=== PATIENT | male | born 1955 | race Two or more races ===

== ENCOUNTER → 2017-09-30 19:02 | Emergency (ER) | payer OTHER, BC ==
[2017-09-30] MEDS: ALBUTEROL 0.5% (NEB) 2.5 MG/0.5 ML AMP INH (15:31)
[2017-09-30] MEDS: IPRATROPIUM (NEB) 0.5 MG/2.5 ML AMP INH (15:31)
[2017-09-30 15:51] LABS: ADD MAN DIFF? NO
[2017-09-30] MEDS: IBUPROFEN 600 MG TAB PO (15:52)
[2017-09-30] MEDS: METHYLPREDNISOLONE 125 MG INJ IV (15:52)
[2017-09-30] MEDS: KETOROLAC 15 MG INJ IV (15:52)
[2017-09-30 15:53] LABS: ABNORMAL IP MESSAGE 1; BASOPHIL # 0.1 10^3/ul (0.0-0.1); BASOPHILS % 0.4 % (0.0-2.0); EOSINOPHILS % 0.2 % (0.0-7.0); HEMATOCRIT 42.8 % (42.0-52.0); HEMOGLOBIN 14.1 g/dl (14.0-18.0); LYMPHOCYTES % 15.9 % (15.0-51.0); MEAN CORPUSCULAR HEMOGLOBIN 27.7 pg (29.0-33.0); MEAN CORPUSCULAR HGB CONC 32.9 g/dl (32.0-37.0); MEAN CORPUSCULAR VOLUME 84.1 fl (82.0-101.0); MEAN PLATELET VOLUME 10.5 fl (7.4-10.4); MONOCYTE # 1.6 10^3/ul (0.3-0.9); MONOCYTES % 12.6 % (0.0-11.0); NEUTROPHIL # 8.9 10^3/ul (1.6-7.5); NEUTROPHILS % 70.5 % (39.0-77.0); PLATELET COUNT 199 10^3/UL (140-415); POSITIVE DIFF @See below; RED BLOOD COUNT 5.09 10^6/ul (4.70-6.10); RED CELL DISTRIBUTION WIDTH 15.3 % (11.5-14.5)
[2017-09-30 15:53] LABS: WHITE BLOOD COUNT 12.7 10^3/ul (4.8-10.8)
[2017-09-30] MEDS: SOD CHLORIDE 0.9% 1,000 ML IV (15:53)
[2017-09-30 16:29] LABS: ALANINE AMINOTRANSFERASE 29 IU/L (13-69); ALBUMIN 4.2 g/dl (3.3-4.9); ALBUMIN/GLOBULIN RATIO 1.27; ALKALINE PHOSPHATASE 49 IU/L (42-121); ANION GAP 12 (8-16); ASPARTATE AMINO TRANSFERASE 24 IU/L (15-46); BILIRUBIN,INDIRECT 0.5 mg/dl (0-1.1); BILIRUBIN,TOTAL 0.5 mg/dl (0.2-1.3); BLOOD UREA NITROGEN 16 mg/dl (7-20); CALCIUM 9.1 mg/dl (8.4-10.2); CARBON DIOXIDE 27 mmol/L (21-31); CHLORIDE 103 mmol/L (97-110); CREATININE 0.83 mg/dl (0.61-1.24); GLUCOSE 127 mg/dl (70-220); LIPASE 114 U/L (23-300); POTASSIUM 4.1 mmol/L (3.5-5.1); SODIUM 138 mmol/L (135-144); TOTAL PROTEIN 7.5 g/dl (6.1-8.1)
[2017-09-30 16:40] LABS: TROPONIN-I < 0.010 ng/ml (0.000-0.120)
[~2017-09-30 19:02] MED LIST: ACETAMINOPHEN 325 MG TAB PO; ALBUTEROL/IPRATROPIUM (NEB) 3 ML AMP HHN; ASPIRIN (EC) 325 MG TAB PO; DOCUSATE SODIUM 100 MG CAP PO; HEPARIN 5,000 UNIT/0.5 ML VIAL SC; HYDROCODONE/APAP (5/325) TAB PO; LORAZEPAM 2 MG INJ IV; MAGNESIUM HYDROXIDE 30ML CUP PO; NA PHOSPHATE/BIPHOS 133 ML ENEMA PR; NACL 0.9% 3 ML SYG IV; NITROGLYCERIN (SL) 0.4 MG TAB SL; ONDANSETRON 4 MG INJ IV; PANTOPRAZOLE 40 MG INJ IV; SOD CHLORIDE 0.45% 1,000 ML IV; hydrALAzine 20 MG INJ IV; morphine 2 MG INJ IV
[2017-09-30 20:21] LABS: FREE T4 (FREE THYROXINE) 1.14 ng/dl (0.78-2.44)
== END | disposition left against medical advice (07) ==
DX: R07.9 Chest pain, unspecified (principal); F17.210 Nicotine dependence, cigarettes, uncomplicated; R06.02 Shortness of breath; R40.2142 Coma scale, eyes open, spontaneous, at arrival to emergency department; R40.2362 Coma scale, best motor response, obeys commands, at arrival to emergency department; R40.2252 Coma scale, best verbal response, oriented, at arrival to emergency department
CPT/HCPCS: 36415; 71045; 80053; 83690; 84439; 84484; 85025; 93005; 94644; 96374; 96375; 99285-25

== ENCOUNTER 2018-04-29 12:51 | Day surgery (SDC) | payer MEDICARE, OTHER ==
[2018-04-29] MEDS ORDERED: LIDOCAINE 2% (SDV) 5 ML INJ (15:15)
[2018-04-29] MEDS ORDERED: PROPOFOL 40 ML (15:15)
[2018-04-29] MEDS ORDERED: HYDROmorphONE 1 MG/5 ML IV SYRINGE IV ×2 (15:30)
[2018-04-29] MEDS ORDERED: ONDANSETRON 4 MG INJ IV (15:30)
== END 2018-04-29 17:06 | disposition home or self-care (01) ==
LOC: GIL 12:51
DX: Z12.11 Encounter for screening for malignant neoplasm of colon (principal); D12.3 Benign neoplasm of transverse colon; I10 Essential (primary) hypertension; E11.9 Type 2 diabetes mellitus without complications; E78.5 Hyperlipidemia, unspecified
CPT/HCPCS: 45380; 82962; 88305